=== PATIENT | male | born 1970 | race American Indian/Alaskan Native ===

== ENCOUNTER 2021-07-03 22:16 | Emergency (ER) | payer SELFPAY ==
[2021-07-03 22:35] VITALS: BP 118/79
== END 2021-07-04 13:00 | disposition left against medical advice (07) ==
LOC: ED 22:16
DX: R07.9 Chest pain, unspecified (principal); Z53.21 Procedure and treatment not carried out due to patient leaving prior to being seen by health care provider
CPT/HCPCS: 93005